=== PATIENT | male | born 1950 | race Caucasian/White ===

== ENCOUNTER 2022-03-15 17:10 | Inpatient (IN) | payer MEDICARE, OTHER ==
[~2022-03-15] VITALS: Ht 165.1 cm; Wt 105.2 kg
[~2022-03-15 17:10] MED LIST: ACET-2605 PO; ASPI-605 PO; ASPI-618 PO; ATOR10TA PO; Acetaminophen PO; CEFT1VIA15 IV; Docusate Sodium PO; HYDR2TAB4 PO; LACT1CAP57 PO; LINE600T12 PO; TAMS-3 PO; VALS160T2 PO
[2022-03-15] MEDS ORDERED: ASPIRIN 325 MG TABLET ONE (17:25)
--- NOTE | 2022-03-15 17:27 | NUR ---
"Plan to admit" per Dr Sheldon. ER registration/admitting staff Kamar notified.
[2022-03-15] MEDS ORDERED: ASPIRIN 325 MG TABLET PO ONE (17:30)
[2022-03-15] MEDS ORDERED: NITROGLYCERIN 0.4 MG/TAB BOTTLE SL ONE ×2 (17:37→17:45)
[2022-03-15 17:40] VITALS: BP 101/62
[2022-03-15] MEDS ORDERED: LORA-259 PO (17:41)
[2022-03-15] MEDS ORDERED: TICA90TA PO (17:41)
[2022-03-15] MEDS ORDERED: COLC0.6C3 PO (17:41)
[2022-03-15] MEDS ORDERED: DAPA10TA PO (17:41)
[2022-03-15] MEDS ORDERED: NEBI5TAB8 PO (17:41)
[2022-03-15] MEDS ORDERED: CITA10TA9 PO (17:41)
[2022-03-15] MEDS ORDERED: ICOS1CAP PO (17:41)
[2022-03-15] MEDS ORDERED: MOUNJARO INJ (17:41)
[2022-03-15] MEDS ORDERED: EVOL140P3 SQ (17:41)
[2022-03-15] MEDS ORDERED: ATOR40TA PO (17:41)
--- NOTE | 2022-03-15 17:47 | NUR ---
Pt BP decreased to 74/35, Dr Sheldon made aware and pt started on IVF, Per order.
[2022-03-15 17:49] LABS: HEMATOCRIT 45.6 % (36.7-47.1); MEAN CORPUSCULAR VOLUME 93.4 fL (73.0-96.2); PLATELET COUNT (AUTO) 152 K/uL (152-348)
[2022-03-15 18:03] LABS: CREATININE 1.2 mg/dL (0.6-1.3)
--- NOTE | 2022-03-15 18:05 | NUR ---
Placed a call to [facility] Dr Murphy, awaiting call back.
[2022-03-15 18:15] LABS: BILIRUBIN,TOTAL 0.7 mg/dL (0.2-1.0); TOTAL PROTEIN, SERUM 7.2 g/dL (6.4-8.2)
[2022-03-15] MEDS ORDERED: IV NORMAL SALINE 1000 ML BAG IV ONE (18:15)
--- NOTE | 2022-03-15 18:24 | NUR ---
ANDER JACKSON spoke to Dr Chacon for Tele admit.
--- NOTE | 2022-03-15 19:55 | NUR ---
Received patient from ER via gurney, once the patient is inside the room he said he doesn't want to be admitted, stated his troponin is in range anyway and he has cardio appointment tomorrow. Explained risks and benefits. Charge nurse RN went to the room and explained patient's condition that he needs to be admitted and Dr. Rausch is aware and will be his primary doctor and he is putting orders at the moment. Patient wants a copy of his labs and his troponin, charge nurse RN printed it for him and gave copy to the patient and explained it to him but still insisted to go home. Patient's at the bedside, is aware and will take the patient home. Appropriate personnel notified.
[2022-03-15] MEDS ORDERED: MAGN400T26 PO (20:40)
[2022-03-15] MEDS ORDERED: HYDROCODONE/APAP 5-325MG TABLET PO PRN (21:45)
[2022-03-15] MEDS ORDERED: ACETAMINOPHEN 325 MG TABLET PO PRN (21:45)
[2022-03-15] MEDS ORDERED: TEMAZEPAM 15 MG CAPSULE PO PRN (21:45)
[2022-03-15] MEDS ORDERED: ONDANSETRON 4 MG/2 ML VIAL IV PRN (21:45)
--- NOTE | 2022-03-15 21:45 | NUR ---
Patient signed AMA paper, appears in fair condition no distress noted, denies chest pain. Left with , ambulatory.
[2022-03-16] MEDS ORDERED: PANTOPRAZOLE SODIUM 40 MG TABLET.DR PO SCH (07:00)
[2022-03-16] MEDS ORDERED: ASPIRIN EC 81 MG TABLET.DR PO SCH (09:00)
== END 2022-03-15 22:06 | disposition left against medical advice (07) | DRG 303 ==
LOC: ER 17:10 → TELE3 18:00
PROVIDERS: ADMIT Internal Medicine; ATTEND Internal Medicine
DX: I25.119 Atherosclerotic heart disease of native coronary artery with unspecified angina pectoris (principal); I24.9 Acute ischemic heart disease, unspecified; I25.2 Old myocardial infarction; E78.5 Hyperlipidemia, unspecified; I10 Essential (primary) hypertension; E11.9 Type 2 diabetes mellitus without complications; I45.10 Unspecified right bundle-branch block; Z95.5 Presence of coronary angioplasty implant and graft; E66.9 Obesity, unspecified; K76.0 Fatty (change of) liver, not elsewhere classified; N40.0 Benign prostatic hyperplasia without lower urinary tract symptoms; K57.90 Diverticulosis of intestine, part unspecified, without perforation or abscess without bleeding; Z68.38 Body mass index [BMI] 38.0-38.9, adult; Z20.822 Contact with and (suspected) exposure to COVID-19
CPT/HCPCS: 36415; 71045; 84484; 85025; 93005; A4663; G0378; J7040